=== PATIENT | female | born 1960 | race Caucasian/White ===

== ENCOUNTER 2023-11-18 07:43 | Outpatient (OUT) | payer SELFPAY ==
--- NOTE | 2023-11-18 08:00 | CA_ITS ---
Patient Name: DONNA TENA MR#: [id number] : 1960 Exam Date: 11/18/2023 Ordering Doctor: DR PRUDENCIO ANDREW M.D. ECHOCARDIOGRAM REPORT PROCEDURE: CA ECHO DOPPLER COMPLETE INDICATIONS: Palpitations, hypertension, diabetes COMPARISON: None. DESCRIPTION: COMPLETE ECHOCARDIOGRAM Real-time transthoracic echocardiography with 2D, M-mode, spectral and color flow Doppler performed. QUALITY: Technical quality was good. LEFT VENTRICLE: Normal chamber size. Proximal septal hypertrophy (sigmoid septum). Normal systolic function. LV EF: Normal left ventricular ejection fraction, (60-65%). DIASTOLIC: Diastolic function is indeterminate. ATRIAL SEPTUM: Visually appears intact. LEFT ATRIUM: Mild dilatation. RIGHT ATRIUM: Normal chamber size. RIGHT VENTRICLE: Normal chamber size. Normal right ventricular systolic function. TRICUSPID VALVE: Normal mobility and thickness. No stenosis with trivial regurgitation. No evidence of pulmonary hypertension. RVSP 33 mmHg MITRAL VALVE: Normal mobility and thickness. No evidence of mitral valve stenosis. Mild mitral annular calcification. No mitral regurgitation. AORTIC VALVE: Normal trileaflet appearance. No visible sclerosis. Normal leaflet mobility. No evidence of aortic valve stenosis. No aortic regurgitation. AORTIC ROOT: Normal diameter and appearance. Ascending aorta is normal in size. PULMONIC VALVE: Not well visualized. No regurgitation. PERICARDIUM: No evidence of pericardial effusion. IVC: Collapses with inspirations. PLEURA: CONCLUSION: 1. Normal left ventricular size and systolic function. LVEF is estimated at 60 to 65%. 2. Normal right ventricular size and systolic function. 3. Mild left atrial dilatation. 4. No significant valvular dysfunction. 5. Normal right-sided pressures. Adult Echocardiography Procedure Report Left Ventricle LVEDD (3.7 - 5.6 cm): 3.83 cm LVESD (2.2 - 4.0 cm): 3.04 cm LVIVS thickness (0.6 - 1.2 cm): 1.30 cm LVPW thickness (0.5 - 1.0 cm): 0.86 cm e': 0.09 m/s E - e': 8.30 LVOT Max Gradient: 2.59 mm[Hg] LVOT Area (cm2): 0.80 m/s Peak Velocity (LVOT): 0.80 m/s Mean Velocity (LVOT): 0.56 m/s LVOT Diameter 1.82 cm Left Atrium LA Volume Index (2D A2C): 43.40 ml/m2 Left Atrium Systolic Dimension: 3.64 cm Mitral Valve MV E to A Ratio: 0.90 Mitral Valve A-Wave Peak Velocity: 0.79 m/s Mitral Valve E-Wave Peak Velocity: 0.71 m/s Right Ventricle Aorta AO Root Diam: 2.64 cm Ascending Ao Diam: 2.67 cm Aortic Valve AoV Area (Peak Reagan): 1.72 cm2, 1.72 cm2 AoV Area (VTI): 1.96 cm2, 1.96 cm2 Peak Velocity(Antegrade Flow): 1.22 m/s Peak Gradient(Antegrade Flow): 5.93 mm[Hg] Mean Velocity(Antegrade Flow): 0.84 m/s Mean Gradient(Antegrade Flow): 3.21 mm[Hg] Velocity Time Integral: 28.59 cm Tricuspid Valve Peak Velocity (Regurgitant Flow): 2.73 m/s Pulmonic Valve Mean Gradient: 1.39 mm[Hg] Mean Velocity: 0.56 m/s Peak Velocity: 0.80 m/s, 0.78 m/s Peak Gradient: 2.44 mm[Hg], 2.54 mm[Hg] Right Atrium Right Atrium Systolic Pressure: 42.49 ml, 42.49 ml Dictated by: Prudencio Andrew M.D. on 11/19/2023 at 15:50 Approved by: Prudencio Andrew M.D. on 11/19/2023 at 15:52
== END 2023-11-18 07:44 | disposition home or self-care (01) ==
PROVIDERS: PCP Nurse Practitioner Family; Visit Provider Internal Medicine Interventional Cardiology
DX: R00.2 Palpitations (principal); I10 Essential (primary) hypertension
CPT/HCPCS: 93306